=== PATIENT | male | born 1960 | race Caucasian/White ===

== ENCOUNTER 2020-07-01 02:18 | Inpatient (IN) | payer MEDICARE ==
[~2020-07-01] VITALS: Ht 185.4 cm; Wt 118.0 kg
[2020-07-01 02:32] LABS: HEMOGLOBIN 14.6 gm/dl (14.0-17.5); RED BLOOD COUNT 4.66 M/UL (4.20-5.50); WHITE BLOOD COUNT 11.9 K/UL (4.5-11.0)
[2020-07-01] MEDS ORDERED: XARELTO2.5 MG PO (04:40)
[2020-07-01] MEDS ORDERED: ENTRESTO 24 MG1 EACH PO (04:40)
[2020-07-01] MEDS ORDERED: PROTONIX 40 MG40 M1 PO (04:40)
[2020-07-01] MEDS ORDERED: FUROSEMIDE40 MG PO (04:41)
[2020-07-01] MEDS ORDERED: MECLIZINE HCL25 MG PO (04:41)
[2020-07-01] MEDS ORDERED: TRAMADOL HCL50 MG PO (04:42)
[2020-07-01] MEDS ORDERED: GABAPENTIN800 MG PO (04:43)
[2020-07-01] MEDS ORDERED: METOPROLOL SUCC25 MG PO (04:44)
[2020-07-01] MEDS ORDERED: FENOFIBRATE160 MG PO (04:44)
[2020-07-01] MEDS ORDERED: ATORVASTATIN CA80 MG PO (04:45)
[2020-07-01] MEDS ORDERED: HYDROCODON-ACE1 EAC6 PO (04:46)
[2020-07-01] MEDS ORDERED: HUMULIN R100 UNIT/1 SQ (04:49)
[2020-07-01] MEDS ORDERED: LANTUS INS100 UTS/ML SQ (04:51)
[2020-07-01 15:04] LABS: ACINETOBACTER BAUMANNII Not Detected (Negative); ENTEROCOCCUS Not Detected (Negative); ESCHERICHIA COLI Not Detected (Negative); HAEMOPHILUS INFLUENZAE Not Detected (Negative); KLEBSIELLA OXYTOCA Not Detected (Negative); KLEBSIELLA PNEUMONIAE Not Detected (Negative); KPC-CARBAPENEM-RESISTANCE GENE Not Detected (Negative); PROTEUS Not Detected (Negative); SERRATIA MARCESANS Not Detected (Negative); STAPHYLOCOCCUS Not Detected (Negative); STAPHYLOCOCCUS AUREUS Not Detected (Negative); STREP AGALACTIAE (GROUP B) Not Detected (Negative); STREP PYOGENES (GROUP A) Not Detected (Negative); mecA (METHICILLIN RESIST GENE Not Detected (Negative); vanA/B (VANCOMYCIN RESIST GENE Not Detected (Negative)
[2020-07-01 15:05] LABS: CANDIDA ALBICANS Not Detected (Negative); CANDIDA KRUSEI Not Detected (Negative); CANDIDA TROPICALIS Not Detected (Negative); PSEUDOMONAS AERUGINOSA Not Detected (Negative)
[2020-07-01 16:21] LABS: STREPTOCOCCUS DETECTED (Negative)
[2020-07-02 06:24] LABS: HEMOGLOBIN 13.7 gm/dl (14.0-17.5); RED BLOOD COUNT 4.33 M/UL (4.20-5.50)
[2020-07-02 06:42] LABS: WHITE BLOOD COUNT 16.3 K/UL (4.5-11.0)
[2020-07-02] MEDS ORDERED: ENTRESTO 24 MG1 EACH PO (17:27)
[2020-07-02] MEDS ORDERED: LASIX 40 MG TAB40 MG PO (17:27)
--- NOTE | 2020-07-02 19:06 | NUR ---
SPOKE TO PATIENT IN REGARDS TO THE HEAD ORDER PLACED EARLIER TODAY BY . HE SAID "I DO NOT SEE THE BENEFIT IN IT. I DO NOT WANT ONE. I THINK HE ORDERED IT BECAUSE THAT GIRL TODAY DID NOT MEASURE IT AND WE DID NOT KNOW HOW MUCH I HAD PEED." I EDUCATED HIM ON WHY THEY WANTED IT AND HE JUST WANTS TO HOLD OUT AND SPEAK TO THE MD TOMORROW.
[2020-07-03 06:47] LABS: HEMOGLOBIN 13.6 gm/dl (14.0-17.5); RED BLOOD COUNT 4.32 M/UL (4.20-5.50)
[2020-07-05 05:50] LABS: HEMOGLOBIN 13.5 gm/dl (14.0-17.5); RED BLOOD COUNT 4.34 M/UL (4.20-5.50); WHITE BLOOD COUNT 9.6 K/UL (4.5-11.0)
[2020-07-05 06:27] LABS: BUN/CREATININE RATIO 36 (0-10)
[2020-07-05] MEDS ORDERED: ASPIRIN EC81 MG PO (12:21)
[2020-07-05] MEDS ORDERED: GABAPENTIN400 MG PO (12:21)
[2020-07-05] MEDS ORDERED: MUPIROCIN30 GM TOP (12:21)
--- NOTE | 2020-07-05 14:51 | NUR ---
07/05/20 1430 REFUSES TO STAY EVEN WITH MUCH ENCOURAGMENT FROM STAFF AND MD. POX 91% RA.
== END 2020-07-05 14:43 | disposition left against medical advice (07) | DRG 871 ==
LOC: ER1 02:18 → CDU 04:31 → M/S 07:50
PROVIDERS: Family Medicine; Hospitalist; Internal Medicine; Internal Medicine Infectious Disease; Internal Medicine Nephrology; ADMIT Internal Medicine
DX: A40.9 Streptococcal sepsis, unspecified (principal); L89.624 Pressure ulcer of left heel, stage 4; L89.614 Pressure ulcer of right heel, stage 4; I50.23 Acute on chronic systolic (congestive) heart failure; J96.21 Acute and chronic respiratory failure with hypoxia; N17.9 Acute kidney failure, unspecified; E87.1 Hypo-osmolality and hyponatremia; E87.2 Acidosis; I13.0 Hypertensive heart and chronic kidney disease with heart failure and stage 1 through stage 4 chronic kidney disease, or unspecified chronic kidney disease; N39.0 Urinary tract infection, site not specified; Z79.4 Long term (current) use of insulin; J44.9 Chronic obstructive pulmonary disease, unspecified; E11.51 Type 2 diabetes mellitus with diabetic peripheral angiopathy without gangrene; Z95.5 Presence of coronary angioplasty implant and graft; Z95.1 Presence of aortocoronary bypass graft; Z88.0 Allergy status to penicillin; I25.10 Atherosclerotic heart disease of native coronary artery without angina pectoris; Z20.822 Contact with and (suspected) exposure to COVID-19; Z95.820 Peripheral vascular angioplasty status with implants and grafts; E78.5 Hyperlipidemia, unspecified; Z95.810 Presence of automatic (implantable) cardiac defibrillator; Z82.49 Family history of ischemic heart disease and other diseases of the circulatory system; Z87.891 Personal history of nicotine dependence; R00.0 Tachycardia, unspecified; G47.33 Obstructive sleep apnea (adult) (pediatric); E87.5 Hyperkalemia; E11.65 Type 2 diabetes mellitus with hyperglycemia; Z79.01 Long term (current) use of anticoagulants; L98.411 Non-pressure chronic ulcer of buttock limited to breakdown of skin; N18.9 Chronic kidney disease, unspecified; E11.22 Type 2 diabetes mellitus with diabetic chronic kidney disease; R60.1 Generalized edema
CPT/HCPCS: ECHO; 36415; 36600; 71045; 71046; 80048; 80053; 80202; 81001; 82009; 82550; 82553; 82570; 82803; 82962; 83605; 83735; 83874; 83880; 84133; 84156; 84300; 84484; 85025; 85027; 85610; 87040; 87077; 87086; 87150; 87186; 89050; 93306; 94640; 94660; 94664; 94760; 96374; 96375; 99285; A6212; J0456; J0610; J0696; J2405; J2920; J2930; J3370; J7030; J7040; J7070; J7120; U0002